=== PATIENT | female | born 1950 | race Caucasian/White ===

== ENCOUNTER 2016-04-13 01:28 | Emergency (ER) | payer OTHER, BC ==
[2016-04-13 01:52] LABS: % IMMATURE GRANULYOCYTES 0.2 % (0.0-1.1); ABSOLUTE IMMATURE GRANULOCYTES 0.01 10^3/uL (0.00-0.10); ADD DIFF? NO; ADD MORPH? NO; ADD SCAN? NO; ATYPICAL LYMPHOCYTE FLAG 0 (0-99); FRAGMENT RBC FLAG 0 (0-99); HEMATOCRIT 38.8 % (38.0-47.0); HEMOGLOBIN 13.3 g/dL (12.6-16.3); LEFT SHIFT FLG 0 (0-99); LIPEMIA HEMOLYSIS FLAG 90 (0-99); MEAN CELL HEMOGLOBIN CONCENTR. 34.3 g/dL (32.4-36.7); MEAN CELL VOLUME 90.4 fL (81.5-99.8); MEAN PLATELET VOLUME 11.2 fL (8.7-11.7); PLATELET CLUMPS FLAG 10 (0-99); PLATELET COUNT 234 10^3/uL (150-400); RED BLOOD CELL COUNT 4.29 10^6/uL (4.18-5.33); RED CELL DISTRIBUTION WIDTH 12.9 % (11.5-15.2)
[2016-04-13] MEDS: NS 1,000 ML IV ONE ×2 (01:52→01:53)
[2016-04-13 02:13] LABS: ALANINE AMINOTRANSFERASE 33 IU/L (9-52); ALBUMIN 4.3 g/dL (3.5-5.0); ALKALINE PHOSPHATASE 63 IU/L (38-126); ANION GAP 12 mEq/L (8-16); ASPARTATE AMINOTRANSFERASE 27 IU/L (14-46); BILIRUBIN,TOTAL 1.1 mg/dL (0.1-1.4); CALCIUM 9.5 mg/dL (8.5-10.4); CARBON DIOXIDE 23 mEq/l (22-31); CHLORIDE 107 mEq/L (97-110); CREATININE 0.6 mg/dL (0.6-1.0); GLOMERULAR FILTRATION RATE > 60; GLUCOSE 119 mg/dL (70-100); SODIUM 142 mEq/L (134-144); TOTAL PROTEIN 7.5 g/dL (6.3-8.2)
[2016-04-13] MEDS ORDERED: IOPAMIDOL (ISOVUE-300) 100 ML BTL IV ONE (02:40)
--- NOTE | 2016-04-13 03:31 | EDPHY ---
H & P Stated Complaint: ABD PAIN WITH DISTENTION AFTER EATING SEAFOOD Time Seen by Provider: 04/13/16 01:52 HPI/ROS: HPI The patient presents with abdominal pain which is described as crampy which started at 9pm tonight slowly. It is moderate in severity associated with nausea and chills, and abdominal bloating. Her sxs have been intermittent and are improving. REVIEW OF SYSTEMS Constitutional: No fever, no chills. Eyes: No discharge. ENT: No sore throat. Cardiovascular: No chest pain, no palpitations. Respiratory: No cough, no shortness of breath. Gastrointestinal: See HPI Genitourinary: No hematuria. Musculoskeletal: No back pain. Skin: No rashes. Neurological: No headache. PMHx: small intestine bacterial overgrowth, s/p treatment with antibiotics, hx of c diff Soc Hx: housed with her PHYSICAL General Appearance: Alert, no distress Eyes: Pupils equal and round no pallor or injection ENT, Mouth: Mucous membranes moist Respiratory: There are no retractions, lungs are clear to auscultation Cardiovascular: Regular rate and rhythm Gastrointestinal: Abdomen is soft and non-tender, no masses, bowel sounds normal Neurological: A&O, moves all extremities Skin: Warm and dry, no rashes Musculoskeletal: Neck is supple non tender Extremities: symmetrical, full range of motion Psychiatric: Patient is oriented X 3, there is no agitation Source: Patient Exam Limitations: No limitations - Personal History Current Tetanus/Diphtheria Vaccine: Yes Current Tetanus Diphtheria and Acellular Pertussis (TDAP): Yes - Medical/Surgical History Hx Asthma: No Hx Chronic Respiratory Disease: No Hx Diabetes: No Hx Cardiac Disease: No Hx Renal Disease: No Hx Cirrhosis: No Hx Alcoholism: No Hx HIV/AIDS: No Hx Splenectomy or Spleen Trauma: No Other PMH: GI ISSUES IN PAST - Social History Smoking Status: Never smoked Constitutional: Initial Vital Signs Temperature (C) 36.5 C 04/13/16 01:30 Heart Rate 70 04/13/16 01:30 Respiratory Rate 16 04/13/16 01:30 Blood Pressure 144/54 H 04/13/16 01:30 O2 Sat (%) 98 04/13/16 01:30 O2 Delivery Mode Room Air Allergies/Adverse Reactions: Penicillins Allergy (Verified 04/13/16 01:37) Home Medications: Medication Instructions Recorded Herbal Drugs [[employer]] 1 each PO 04/13/16 Medical Decision Making - Diagnostics Imaging: CT scan of abdomen pelvis with IV contrast demonstrates fecalization of small bowel, discussed with Dr. Dacosta of Radiology. Differential Diagnosis: This is a 65 yo F with hx of c diff who presents from home [facility] for abdominal pain which has been present for the last several hours. It is cramping in nature and associated with nausea and chills. DDx includes diverticulitis, gastroenteritis, colitis, appendicitis. In the ER, IV was established and pt was given 1L NS. Labs were checked and were unremarkable. The patient continued to have pain, thus CT scan was performed which demonstrated fecalization of sm bowel, which could be an indication of small intestine bacterial overgrowth, which the patient has previously been diagnosed with. She feels well enough to go home and is able to tolerate po. I will refer her to [facility], where she has been seen previously for further care. She is in agreement with plan. - Data Points Laboratory Results: Laboratory Results 04/13/16 01:43 04/13/16 01:43 Medications Given: Discontinued Medications Sodium Chloride (Ns) 1,000 mls @ 0 mls/hr IV ONCE ONE PRN Reason: Wide Open Stop: 04/13/16 01:35 Last Admin: 04/13/16 01:53 Dose: 1,000 mls Departure - Departure Disposition: Home, Routine, Self-Care Clinical Impression: Abdominal cramping Condition: Good Instructions: Acute Abdominal Pain (ED) Additional Instructions: Please return to the emergency room if your worse in any way. Otherwise you should follow up with the [facility]. Referrals: [facility] [Provider Group] - As per Instructions
[2016-04-13 03:37] LABS: COLOR YELLOW; LEUKOCYTE ESTERASE,URINE NEGATIVE (NEGATIVE); NITRITE,URINE NEGATIVE (NEGATIVE)
[2016-04-13 04:11] VITALS: BP 135/61; PULSE 68; RESP 18; TEMP 98.2; O2SAT 94
== END 2016-04-13 04:11 | disposition home or self-care (01) ==
LOC: EDUNIT#
DX: R10.9 Unspecified abdominal pain (principal)
CPT/HCPCS: 74177; 96360; 99285; Q9967